=== PATIENT | male | born 1950 | race Two or more races ===

== ENCOUNTER 2020-03-05 13:59 | Inpatient (IN) | payer OTHER, MEDICAID ==
[~2020-03-05] VITALS: Ht 152.4 cm; Wt 78.8 kg
[~2020-03-05 13:59] MED LIST: GABA300C10 OR; METF-370 OR; SIMV-8 OR
[2020-03-05 15:04] LABS: Basophils # (auto) 0 10 ^3/uL (0-0.2); Basophils % (auto) 0.5 % (0.0-2.0); Eosinophils # (auto) 0 10 ^3/uL (0-0.8); Eosinophils % (auto) 0.2 % (0.0-7.0); Hematocrit 30.7 % (41.0-53.0); Hemoglobin 10.3 g/dL (13.5-17.5); Lymphocytes # (auto) 0.9 10 ^3/uL (0.4-5.4); Lymphocytes % (auto) 8.9 % (10.0-50.0); Mean Corpuscular Hemoglobin 30.7 pg (28.0-32.0); Mean Corpuscular Hgb Conc. 33.5 g/dL (32.0-36.0); Mean Corpuscular Volume 91.7 fL (80.0-100.0); Monocytes # (auto) 0.7 10 ^3/uL (0-1.3); Monocytes % (auto) 6.8 % (0.0-12.0); Neutrophils # (auto) 8.7 10 ^3/uL (1.6-8.6); Neutrophils % (auto) 83.6 % (37.0-80.0); Platelet Count (auto) 194 10^3/uL (140-450); Red Blood Cells 3.35 10^6/uL (4.5-5.90); Red Cell Distribution Width 14.4 % (11.8-14.3); White Blood Cell 10.4 10^3/uL (4.4-10.8)
[2020-03-05 15:23] LABS: Alanine Aminotransferase 31 U/L (16-61); Albumin 2.8 g/dL (3.4-5.0); Anion Gap 10 (5-15); Aspartate Aminotransferase 29 U/L (15-37); BUN/Creatinine Ratio 22.9; Blood Urea Nitrogen 51 mg/dL (7-18); Calcium 8.3 mg/dL (8.5-10.1); Carbon Dioxide 17 mmol/L (21-32); Chloride 105 mmol/L (98-107); GFR African American 38 mL/min; GFR Non-African American 31 mL/min; Glucose 139 mg/dL (74-106); Potassium 4.7 mmol/L (3.5-5.1); Sodium 132 mmol/L (136-145)
[2020-03-05 15:27] LABS: Alkaline Phosphatase 83 U/L (45-117); Bilirubin, Total 0.6 mg/dL (0.2-1.0); Total Protein 8.1 g/dL (6.4-8.2)
[2020-03-05 15:50] LABS: Urine Bacteria FEW /hpf (None Seen); Urine Blood 1+ /uL (Negative); Urine Hyaline Cast MANY /lpf (0 - 2); Urine Specific Gravity 1.019 (1.001-1.035); Urine WBC 20 /hpf (0 - 3)
[2020-03-05] MEDS ORDERED: SODIUM CHLORIDE 0.9% 1,000 ML IVB ONE (16:13)
[2020-03-05] MEDS ORDERED: PANTOPRAZOLE 40 MG/10 ML VIAL INJ IV STA (16:13)
[2020-03-05] MEDS ORDERED: ONDANSETRON HCL 4 MG/2 ML VIAL IV ONE (16:15)
[2020-03-05] MEDS ORDERED: DOXYCYCLINE 100MG/250ML 250 ML IV ONE (19:15)
[2020-03-05] MEDS ORDERED: DexAMETHasone SOD PHOS 10MG/1ML VIAL INJ IV ONE (19:15)
[2020-03-05 21:43] LABS: INR 1.04 (0.9-1.15); Partial Thromboplastin Time 32.2 sec (23.64-32.05)
[2020-03-05] MEDS ORDERED: MORPHINE SULF INJ 2 MG/ML SYRINGE 1ML IV PRN (22:45)
[2020-03-05] MEDS ORDERED: ACETAMINOPHEN 325 MG TAB PO PRN (22:45)
[2020-03-05] MEDS ORDERED: DEXTROSE (50%) 50ML SYRG IV PRN (22:45)
[2020-03-05] MEDS ORDERED: TEMAZEPAM 15 MG CAP PO PRN (22:45)
[2020-03-05] MEDS ORDERED: ONDANSETRON HCL 4 MG/2 ML VIAL IV PRN (22:45)
[2020-03-05] MEDS ORDERED: NITROGLYCERIN 0.4 MG SL TAB SL PRN (22:45)
[2020-03-05 22:56] LABS: Magnesium 2.6 mg/dL (1.6-2.6)
[2020-03-05 23:04] LABS: CRP High Sensitivity 13.5 mg/dL (< 0.3)
[2020-03-05 23:58] VITALS: BP 150/74
--- NOTE | 2020-03-06 | NUR ---
Telemetry admit from [facility] admitted to Telemetry unit. Patient oriented to Damion Steele, primary RN, unit, room, bed, and unit policies regarding patient care and visiting hours. Patient now on continuous telemetry monitoring, tele box #16 and telemetry reading on arrival to unit is SR 85. Patient placed on 5 L bedside oxygen. Patient denies feeling SOB and does not appear to be in any distress. Patient reports 4/10 upper abdominal pain but states that his pain is tolerable at the moment. Patient weighed by bedscale and encouraged to call if they need something. All questions and concerns addressed, patient verbalized understanding.
[2020-03-06 00:52] VITALS: BP 150/74
--- NOTE | 2020-03-06 00:55 | NUR ---
COVID RESULTS Notified by lab that the patient is positive for COVID-19. metal furniture assembler has been made aware.
[2020-03-06 04:52] VITALS: BP 121/68
[2020-03-06] MEDS ORDERED: metroNIDAZOLE 500MG/100ML 100 ML IV SCH (06:00)
[2020-03-06] MEDS: InsuLIN REG 1unit/0.01ml Soln (100units/ml) SC SCH ×4 (06:35→22:00)
[2020-03-06] MEDS: ACCU-CHEK COMFORT CURVE STRIP VI SCH ×4 (06:36→22:00)
--- NOTE | 2020-03-06 07:15 | NUR ---
OPENING SHIFT NOTE ASSUMED CARE OF PATIENT FROM STONEWORKING BELT SANDER RN GLORIA. PATIENT IS AWAKE, ALERT, AND ORIENTED X4. PATIENT HAS O S/S OF DISTRESS/SOB OR PAIN. INSTRUCTED PATIENT ON POC, PATIENT VERBALIZED UNDERSTANDING. BED IS IN LOWEST POSITION WITH SIDE RAILS RAISED X2, BED WHEELS LOCKED, AND CALL LIGHT IS WITHIN REACH. WILL CONTINUE TO MONITOR.
[2020-03-06 07:30] VITALS: BP 140/69
[2020-03-06 09:11] LABS: Basophils # (auto) 0 10 ^3/uL (0-0.2); Basophils % (auto) 0.1 % (0.0-2.0); Eosinophils # (auto) 0 10 ^3/uL (0-0.8); Hematocrit 29.9 % (41.0-53.0); Hemoglobin 9.9 g/dL (13.5-17.5); Lymphocytes # (auto) 0.8 10 ^3/uL (0.4-5.4); Lymphocytes % (auto) 7.3 % (10.0-50.0); Mean Corpuscular Hemoglobin 30.1 pg (28.0-32.0); Mean Corpuscular Volume 91.1 fL (80.0-100.0); Monocytes # (auto) 0.4 10 ^3/uL (0-1.3); Monocytes % (auto) 3.1 % (0.0-12.0); Neutrophils # (auto) 10.3 10 ^3/uL (1.6-8.6); Neutrophils % (auto) 89.5 % (37.0-80.0); Platelet Count (auto) 219 10^3/uL (140-450); Red Blood Cells 3.29 10^6/uL (4.5-5.90); Red Cell Distribution Width 14.4 % (11.8-14.3); White Blood Cell 11.5 10^3/uL (4.4-10.8)
[2020-03-06 09:27] LABS: Potassium 4.7 mmol/L (3.5-5.1)
[2020-03-06] MEDS: cefTRIAXone 1GM/50ML D5W 50 ML IV SCH (09:30)
[2020-03-06 09:35] LABS: Albumin 2.6 g/dL (3.4-5.0); BUN/Creatinine Ratio 28.2; Bilirubin, Total 0.4 mg/dL (0.2-1.0); Calcium 8.3 mg/dL (8.5-10.1); Total Protein 8.1 g/dL (6.4-8.2)
[2020-03-06] MEDS ORDERED: DOXYCYCLINE 100MG/250ML 250 ML IV SCH (10:00)
[2020-03-06] MEDS: AZITHROMYCIN 500MG/ 250ML 250 ML IV SCH ×2 (10:00→11:44)
[2020-03-06] MEDS: PANTOPRAZOLE 40 MG TAB PO SCH (10:05)
[2020-03-06] MEDS: CHOLECALCIFEROL (VITD3) 2,000 UNIT CAP PO SCH (10:05)
[2020-03-06] MEDS: GABAPENTIN 300 MG CAP PO SCH ×2 (10:06→22:00)
[2020-03-06] MEDS: ASCORBIC ACID 1,000 MG TAB PO SCH (10:06)
[2020-03-06] MEDS: ZINC SULFATE 220mg CAP or TAB PO SCH (10:06)
--- NOTE | 2020-03-06 11:40 | NUR ---
MD SOMMERS AT BEDSIDE UPDATED MD ON PATIENT'S STATUS INCLUDING SODIUM, BUN , CREATININE, URINE ANALYSIS AND FERRITIN LEVELS AND SPO2 IS 92% ON ROOM AIR, MD IS AWARE. MD WILL PUT IN NEW ORDERS.
[2020-03-06 12:36] VITALS: BP 115/61
--- NOTE | 2020-03-06 14:00 | NUR ---
Received report for patient from PETRONA Mcfarlane.
--- NOTE | 2020-03-06 14:15 | NUR ---
CLOSING SHIFT NOTE ENDORSED CARE TO RELIEF PETRONA ALEMAN. PATIENT HAS NO S/S OF DISTRESS/SOB OR PAIN AT THIS TIME.
--- NOTE | 2020-03-06 14:40 | NUR ---
Rounds Patient is comfortably sleeping in bed, on room air, respirations are even and unlabored. No s/s of distress/sob noted /stated. Bed at lowest locked position and call light within reach. Will continue to monitor PRN.
[2020-03-06] MEDS ORDERED: SODIUM CHLORIDE 0.9% 1,000 ML IV ONE (15:00)
[2020-03-06] MEDS: SODIUM CHLORIDE 0.9% 1,000 ML IV SCH (15:00)
--- NOTE | 2020-03-06 15:20 | NUR ---
Left a message for Dr. Haseeb Ruiz Require clarification on IV fluids order. Awaiting call back.
[2020-03-06] MEDS ORDERED: guaiFENesin-DM 100/10mg/5ml SYR PO PRN (15:45)
[2020-03-06 16:52] VITALS: BP 116/63
--- NOTE | 2020-03-06 19:19 | NUR ---
Closing shift note Care endorsed to ANDREA Finch RN. Patient is comfortably resting in bed, on room air, respirations are even and unlabored, 94%spo2 no c/o pain. No s/s of distress noted/stated.
--- NOTE | 2020-03-06 19:20 | NUR ---
Opening Shift Note Assumed care of patient, awake and alert. No S/S of distress/SOB or pain. Bed is locked in lowest position with call light within reach. Instructed on POC and to call for assist PRN, will continue to monitor for changes Q1hr and PRN.
[2020-03-06 20:27] LABS: BUN/Creatinine Ratio 31.8; Calcium 7.9 mg/dL (8.5-10.1); Potassium 4.6 mmol/L (3.5-5.1)
[2020-03-06 20:38] LABS: CRP High Sensitivity 12.7 mg/dL (< 0.3)
[2020-03-06] MEDS ORDERED: ATORVASTATIN 20 MG TAB PO SCH (22:00)
[2020-03-06] MEDS ORDERED: ENOXAPARIN SOD 80 MG/0.8ML SYRINGE SC SCH (22:00)
[2020-03-06 23:12] VITALS: BP 130/70
[2020-03-07] MEDS: SODIUM CHLORIDE 0.9% 1,000 ML IV SCH (01:58)
[2020-03-07 05:00] VITALS: BP 136/72
[2020-03-07 05:39] LABS: Basophils # (auto) 0 10 ^3/uL (0-0.2); Eosinophils # (auto) 0 10 ^3/uL (0-0.8); Hematocrit 30.2 % (41.0-53.0); Lymphocytes # (auto) 0.7 10 ^3/uL (0.4-5.4); Lymphocytes % (auto) 4.2 % (10.0-50.0); Mean Corpuscular Hemoglobin 30.5 pg (28.0-32.0); Mean Corpuscular Hgb Conc. 33.2 g/dL (32.0-36.0); Mean Corpuscular Volume 91.9 fL (80.0-100.0); Monocytes # (auto) 0.9 10 ^3/uL (0-1.3); Neutrophils # (auto) 16.3 10 ^3/uL (1.6-8.6); Neutrophils % (auto) 90.8 % (37.0-80.0); Nucleated Red Blood Cells % 0.1 %; Platelet Count (auto) 212 10^3/uL (140-450); Red Blood Cells 3.29 10^6/uL (4.5-5.90); Red Cell Distribution Width 14.5 % (11.8-14.3); White Blood Cell 17.9 10^3/uL (4.4-10.8)
[2020-03-07 05:59] LABS: Calcium 7.8 mg/dL (8.5-10.1); Potassium 4.8 mmol/L (3.5-5.1)
[2020-03-07 06:07] LABS: BUN/Creatinine Ratio 33.5; CRP High Sensitivity 8.76 mg/dL (< 0.3)
[2020-03-07] MEDS: InsuLIN REG 1unit/0.01ml Soln (100units/ml) SC SCH ×2 (06:15→11:30)
[2020-03-07] MEDS: ACCU-CHEK COMFORT CURVE STRIP VI SCH ×2 (06:20→11:30)
--- NOTE | 2020-03-07 07:10 | NUR ---
OPENING SHIFT NOTE ASSUMED CARE OF PATIENT FROM CASHIER CHECKER RN GLORIA. PATIENT IS AWAKE, ALERT, AND ORIENTED X4. PATIENT HAS O S/S OF DISTRESS/SOB OR PAIN. INSTRUCTED PATIENT ON POC, PATIENT VERBALIZED UNDERSTANDING. BED IS IN LOWEST POSITION WITH SIDE RAILS RAISED X2, BED WHEELS LOCKED, URINAL AND CALL LIGHT IS WITHIN REACH. WILL CONTINUE TO MONITOR.
[2020-03-07 07:52] VITALS: BP 141/76
[2020-03-07] MEDS: CHOLECALCIFEROL (VITD3) 2,000 UNIT CAP PO SCH (09:00)
[2020-03-07] MEDS: ZINC SULFATE 220mg CAP or TAB PO SCH (09:00)
[2020-03-07] MEDS: cefTRIAXone 1GM/50ML D5W 50 ML IV SCH (09:00)
[2020-03-07] MEDS: PANTOPRAZOLE 40 MG TAB PO SCH (09:00)
[2020-03-07] MEDS: ASCORBIC ACID 1,000 MG TAB PO SCH (09:00)
[2020-03-07] MEDS: GABAPENTIN 300 MG CAP PO SCH (09:01)
[2020-03-07] MEDS ORDERED: DexAMETHasone SOD PHOS 10MG/1ML VIAL INJ IV SCH (10:00)
[2020-03-07] MEDS: AZITHROMYCIN 500MG/ 250ML 250 ML IV SCH (10:13)
--- NOTE | 2020-03-07 14:30 | NUR ---
CLOSING SHIFT NOTE ENDORSED CARE TO HEAD OF ACADEMIC TECHNOLOGY RN GERMAN. PATIENT HAS NO S/S OF DISTRESS/SOB OR PAIN AT THIS TIME. INFORMED RN, WE ARE WAITING FOR DR. SOMMERS TO SEE PATIENT AND PER DR. GARCIA'S NOTE HE RECOMMENDS REMDESIVIR COURSE.
[2020-03-07] MEDS ORDERED: DEXTROSE (50%) 50ML SYRG IV PRN (15:15)
--- NOTE | 2020-03-07 15:20 | NUR ---
MD GARCIA AT BED SIDE. NEW ORDERS RECEIVED. WILL CARRY OUT.
[2020-03-07] MEDS ORDERED: SODIUM BICARBONATE 50ML VIAL 50 ML in SOD CHL 0.45% 1,000 ML IV SCH (15:30)
--- NOTE | 2020-03-07 15:35 | NUR ---
PATIENT AMBULATED WITH NO S/S OF SOB OR DISTRESS. SPO2 SUSTAINED AT 90% ON RA. MD JOSE MUNGUIA.
[2020-03-07] MEDS ORDERED: DOXY-332 PO (15:56)
[2020-03-07] MEDS ORDERED: IPRIH IN (15:56)
[2020-03-07] MEDS ORDERED: DEXT1SYP9 PO (15:56)
[2020-03-07] MEDS ORDERED: ZINC220T6 PO (15:56)
[2020-03-07] MEDS ORDERED: ALBUAER3 IN (15:56)
[2020-03-07] MEDS ORDERED: PRED20TA2 PO (15:56)
--- NOTE | 2020-03-07 16:10 | NUR ---
TELEPHONE CALL FROM MD LOVE. NEW ORDERS RECEIVED. WILL CARRY OUT.
--- NOTE | 2020-03-07 16:42 | NUR ---
Assessment Patient is a 69-year old male who is alert and oriented. Patient is a Armenian speaker. Prior to admission patient lived home alone and functioned independently. Per patient he can care for his own ADLs. Per patient he does not have any medical equipment and does not need any at this time. Patient informed me he does not have home oxygen. Per patient he will return home to his prior living arrangements post discharge and his son Lester will transport patient home. Patient informed me his PCP is Dr. Esquivel. Informed patient to follow up with his primary doctor. Advised patient there is a social service consult for [facility]/ [facility] transitional care management. Informed patient clinical information will be faxed to his health plan who will refer him to [facility] Transitional care management. Informed patient he has the right to participate in all discharge planning. Patient verbalized understanding and agreed to discharge plan home. Faxed clinical information to [facility] who will be referring patient to [facility]. Informed PETRONA Matta. Addendum: 03/07/20 at 1644 by ROZINA LAU Amended: Links added.
[2020-03-07] MEDS ORDERED: ACCU-CHEK COMFORT CURVE STRIP VI SCH (17:00)
[2020-03-07] MEDS ORDERED: InsuLIN REG 1unit/0.01ml Soln (100units/ml) SC SCH ×2 (17:00→22:00)
--- NOTE | 2020-03-07 17:30 | NUR ---
URINE COLLECTED AND SENT TO LAB PER ORDER
[2020-03-07 18:55] VITALS: BP 138/70
[2020-03-07] MEDS ORDERED: LEVO500T21 PO (19:07)
--- NOTE | 2020-03-07 19:09 | NUR ---
CALL FROM DR Nguyen WALSH. NEW ORDERS RECEIVED, WILL IMPLEMENT.
--- NOTE | 2020-03-07 19:11 | NUR ---
DR LOVE PAGED THROUGH EXCHANGE SYSTEM TO OBTAIN CLEARANCE FOR DISCHARGE. AWAITING CALL BACK.
[2020-03-07 19:19] LABS: Protein, Urine 146.7 mg/dL (0.0-11.9)
--- NOTE | 2020-03-07 19:33 | NUR ---
COMPLETION OF DISCHARGE AND INSTRUCTIONS TO PATIENT ENDORSED TO NOC SHIFT RN.
--- NOTE | 2020-03-07 20:26 | NUR ---
Spoke with patients crispin Arrington, son currently on way to paste mixing supervisor patient for discharge. Discharge instructions given to patient.
--- NOTE | 2020-03-07 21:34 | NUR ---
Patient off unit, being transported via wheelchair by NA for discharge. Son waiting in front of ER. Patient was educated on discharge instructions and all belongings with patient.
== END 2020-03-07 21:35 | disposition home or self-care (01) | DRG 177 ==
LOC: ER 13:59 → TELE-EAST 14:00
PROVIDERS: ADMIT Nurse Practitioner; ATTEND Hospitalist
DX: U07.1 COVID-19 (principal); J96.01 Acute respiratory failure with hypoxia; J12.89 Other viral pneumonia; J15.9 Unspecified bacterial pneumonia; E87.2 Acidosis; E87.1 Hypo-osmolality and hyponatremia; N39.0 Urinary tract infection, site not specified; N17.9 Acute kidney failure, unspecified; E11.65 Type 2 diabetes mellitus with hyperglycemia; E86.0 Dehydration; N20.0 Calculus of kidney; E11.40 Type 2 diabetes mellitus with diabetic neuropathy, unspecified; E11.22 Type 2 diabetes mellitus with diabetic chronic kidney disease; N18.9 Chronic kidney disease, unspecified; E78.5 Hyperlipidemia, unspecified; E66.9 Obesity, unspecified; T50.8X5A Adverse effect of diagnostic agents, initial encounter; Z68.33 Body mass index [BMI] 33.0-33.9, adult; Z79.84 Long term (current) use of oral hypoglycemic drugs; Z79.899 Other long term (current) drug therapy
CPT/HCPCS: 36415; 36600; 71045; 74176; 80048; 80053; 81001; 82570; 82728; 82805; 82962; 83735; 84156; 84300; 84484; 85025; 85379; 85610; 85730; 86141; 87040; 93005; 93970; 96365; 96375; C9113; G0378; J0696; J1100; J1815; J2405; J3490